=== PATIENT | male | born 1945 | race Caucasian/White ===

== ENCOUNTER 2016-12-07 15:06 | Inpatient (IN) | payer MEDICARE, BC ==
--- NOTE | ~2016-12-07 | DS ---
Discharge Summary [facility] [address] [place]. [address] NAME: CLAIRE MEEK : 43 STATUS : DIS IN PAT#: [id number] AGE: 71 ADM/REG DATE : 12/08/16 MR#: [id number] REPORT SERV DATE: 12/12/16 DICTATED BY: DATE: REPORT STATUS : Draft TRANSCRIBED BY: MODL DATE: 12/11/16 ADMISSION DATE: 12/08/2016 DISCHARGE DATE: 12/11/2016 DISCHARGE DIAGNOSES: 1. Large volume pulmonary emboli. 2. Right leg deep venous thrombosis. 3. Anxiety. 4. Depression. 5. Hypertension. 6. Right ventricular heart failure versus strain. CONSULTATIONS: 1. Pulmonary, Dr. Alma Reyes. 2. Interventional Radiology. PROCEDURES AND IMAGIN. 12/07/2016, portable chest x-ray showed no acute cardiopulmonary abnormality. 2. 12/08/2016, CTA of the chest showed:. a. Pulmonary emboli. b. Minimal nodule in the right lower lobe requiring a followup CT recommendation in 6 months. c. Calcific atherosclerosis. 3. 12/08/2016, bilateral lower extremity venous Doppler showed acute thrombus in the right lower extremity popliteal and calf veins. 4. 12/09/2016, Vasc lab followup thrombolysis imaging showed pulmonary pressures returning to normal with clot burden being reduced significantly, and EKOS catheter thrombosis was terminated. 5. 12/08/2016, Vasc lab initial imaging prior to thrombosis showed:. a. Pulmonary hypertension. b. Bilateral submassive pulmonary embolisms. HOSPITAL COURSE: This is a very pleasant 71-year-old white gentleman who reports worsening dyspnea on exertion and increased fatigue. Please see admission H and P by Jaz Dang on 12/07. On CT of chest exam, it was shown that the patient had extensive bilateral pulmonary emboli, so Pulmonary was consulted for a possible EKOS catheter-directed thrombolysis per Interventional Radiology, and this procedure was performed. The patient did have an echocardiogram that was done that showed an ejection fraction of 50% with mildly dilated right ventricle with mildly decreased systolic dysfunction. The patient has done well post procedure, and burden of subtle emboli was majorly decreased with administration of tPA to the clot. It was decided that this would not require an IVC filter. The patient tolerated his treatment very well. Has had some fluctuations in blood pressure for which he was given p.r.n. medications. It was discussed with the patient the need to purchase compression stockings, also extensive discussion was given with the patient about no cross- country running or cross-country biking for two months and the patient should avoid any type of activity that might increase the risk of falling including running upstairs. It was also Discharge Summary [facility] [id number] [place]. [address] NAME: CLAIRE MEEK : 43 STATUS : DIS IN PAT#: [id number] AGE: 71 ADM/REG DATE : 12/08/16 MR#: [id number] REPORT SERV DATE: 12/12/16 DICTATED BY: DATE: REPORT STATUS : Draft TRANSCRIBED BY: MODL DATE: 12/11/[address] stressed to him by Dr. Malone that the patient will have an increased risk of bleeding with his antidepressant medications and that there is no reversal agent for Eliquis. The patient was also encouraged to discuss his initiation of Eliquis with his psychiatrist, Dr. Marco Antonio Malik. The patient and verbalized understanding. PHYSICAL EXAMINATION: VITAL SIGNS: Blood pressure 183/94, O2 saturation is 95% on room air, temperature is 97.4, respirations are 20, heart rate is 70. HEENT: Head is atraumatic, normocephalic. Sclerae are clear and nonicteric. The patient has good dentition. Pupils are equal, round, reactive to light and accommodation. NECK: Supple with no obvious lymphadenopathy or thyromegaly. Neck veins are flat. CARDIAC: The patient has S1 and S2 with no obvious murmurs, rubs, or gallops. LUNGS: Clear to auscultation with normal respiratory effort. GI: Abdomen is soft and nontender with active bowel sounds in all four quadrants. No palpable organomegaly. Normal bowel habitus. EXTREMITIES: No significant edema, clubbing, or cyanosis. Dorsalis pedis and posterior tibial pulses are palpable bilaterally. The patient does have some right lower extremity minimal swelling due to his DVT. MUSCULOSKELETAL: Moves all extremities x4. Ambulatory without assistance. No difficulties with balance. SKIN: Skin is warm and dry. Normal color and turgor. NEUROPSYCH: The patient is alert and oriented x3, pleasant cooperative. Cranial nerves 2 through 12 are grossly intact. Affect is bright. DISCHARGE DIET: The patient is to be discharged on a regular diet. DISCHARGE MEDICATION: 1. Apixaban 10 mg twice daily through 12/16/2016. 2. Apixaban 5 mg twice daily starting 12/17/2016. 3. Aspirin 325 mg daily. 4. Lipitor 10 mg daily. 5. Xalatan one drop in both eyes at bedtime. 6. Remeron 30 mg at bedtime. 7. Pristiq 100 mg daily. 8. Nexium 20 mg daily. 9. Ramipril 2.5 mg daily. 10.Flomax 0.4 mg daily. 11.Deplin 15 mg every 48 hours. 12.Latuda 20 mg daily. 13.Valium 5 mg four times a day as needed for anxiety. 14.AndroGel 1% 12.5 mg applied to shoulder. 15.The patient is to abstain from omega-3, flaxseed, and curcumin until discussed with his primary care provider. ALLERGIES: THE PATIENT IS ALLERGIC TO CODEINE. DISCHARGE INSTRUCTIONS: The patient is to follow up with his PCP this week as previously Discharge Summary [address] [address] NAME: CLAIRE MEEK : 43 STATUS : DIS IN PAT#: [id number] AGE: 71 ADM/REG DATE : 12/08/16 MR#: [id number] REPORT SERV DATE: 12/12/16 DICTATED BY: DATE: REPORT STATUS : Draft TRANSCRIBED BY: OTILIO DATE: 12/11/16 scheduled. Should the patient develop any type of bleeding or have a fall, he should present to the ER as soon as possible. It has been discussed with the patient, no cross- country running, biking, or other activities that might increase risk of falls for the next two months and throughout his Eliquis treatment. The patient also understands there is increased risk of bleeding with his antidepressant medications and that there is no reversal agent for Eliquis. Both the patient and spouse expressed their understanding. TIME SPENT: Approximately, 30 minutes have been spent coordinating discharge care of this patient including [id number] encounter and summarization of the discharge. HOLLY/OTILIO Tamy Ly NP / [id number] CC: Rafiq Malone M.D.
--- NOTE | ~2016-12-07 | CN ---
Consultation Report [facility] [address] [place]. [address] NAME: CLAIRE MEEK : 43 STATUS : ADM IN PAT#: [id number] AGE: 71 ADM/REG DATE : 12/08/16 MR#: [id number] REPORT SERV DATE: 12/09/16 DICTATED BY: NAYAN HERNANDEZ DATE: 12/08/16 REPORT STATUS : Draft TRANSCRIBED BY: MODL DATE: 12/08/16 CONSULTATION DATE OF CONSULTATION: 12/08/2016 REASON FOR CONSULTATION: Pulmonary embolus. HISTORY OF PRESENT ILLNESS: Mr. Meek is a 71-year-old male with history of hypertension, anxiety, presents to emergency department with history of progressive shortness of breath for several months. The patient said that he initially noticed a change in his baseline function capacity about six to eight months ago when he noticed difficulty with doing his typical exercise routine, which involved riding a bicycle 25-35 miles including with steep hill climbs and running up seven flights of stairs. He initially attributed this to depression and antidepressants had been adjusted. He actually adjusted his course to be less hilly, but he was able to resume a very high level of exercise. About two weeks ago, however, he could not even do this and noted that he had difficulty climbing two flights of stairs and had to abort doing high performance physical activity altogether. This actually caused much increased depression for which he followed up with his psychiatrist. This was stable again until about three days ago, when patient began having shortness of breath on minimal exertion, unable to climb even half a flight of stairs. He is in the emergency department for evaluation of this. There was no chest pain or chest discomfort of any kind. There has been some anxiety and depression as mentioned. No palpitations. No cough. No wheeze. No pain elsewhere. No nausea or vomiting. Mild constipation only, but no bleeding. No swelling. No headache. No limb swelling. Only occasional hand numbness, and remainder of the review of systems is negative. PAST MEDICAL HISTORY: As mentioned above. He has a known aortic aneurysm. MEDICATIONS: Include Flomax, Procardia, AndroGel, Remeron, Lipitor, Altace, Nexium, Latuda, Pristiq, and Valium. ALLERGIES: CODEINE. FAMILY HISTORY: Positive for coronary artery disease in his father, who also had what appears to be a previous venous thrombus. SOCIAL HISTORY: The patient is a remote smoker, but quit 40 years ago. PHYSICAL EXAMINATION: VITAL SIGNS: Blood pressure 176/102, pulse 77, respirations 20, afebrile. O2 saturation 93%. GENERAL: Comfortable, anxious white male, alert and oriented x3, no apparent distress. HEENT: Pupils equal, round, and reactive to light. Extraocular movements are intact. No cranial nerve deficits. Moist mucous membranes. Normal oropharynx. NECK: Revealed no jugular venous distention, carotid bruits, lymphadenopathy, or goiter. Consultation Report [facility] [address] [place]. [address] NAME: CLAIRE MEEK : 43 STATUS : ADM IN [facility]#: [id number] AGE: 71 ADM/REG DATE : 12/08/16 MR#: [id number] REPORT SERV DATE: 12/09/16 DICTATED BY: NAYAN HERNANDEZ DATE: 12/08/16 REPORT STATUS : Draft TRANSCRIBED BY: OTILIO DATE: 12/08/16 CARDIAC: Regular rate and rhythm. No murmurs, gallops, or rubs. LUNGS: Clear to auscultation bilaterally with good respiratory excursion with no wheeze. ABDOMEN: Soft and nontender. Bowel sounds normoactive. No organomegaly. EXTREMITIES: No cyanosis, clubbing, or edema. Good pulses and capillary refill. No Homans sign or cords. NEUROLOGIC: He had normal sensory and motor function in all four extremities. SKIN: Warm and dry. PSYCHIATRIC: Appropriate. LABORATORY EVALUATION: The pH 7.49, pCO2 34, PO2 77. Sodium 139, potassium 3.9, chloride 105, bicarb 23, BUN 16, creatinine 1.2, glucose 137. White count 9000, hemoglobin and hematocrit 14 and 42, platelets 145. Echocardiogram showed normal ejection fraction, but elevated right ventricular pressures and right atrial enlargement. EKG reviewed by me showed no pattern. CT of the thorax reviewed by me showed a massive thrombus load in bilateral proximal pulmonary arteries with a saddle embolus between the two 5 mm lung nodules noted. We also noted significant right ventricle, right atrial enlargement. ASSESSMENT/PLAN: 1. Saddle embolus with bilateral pulmonary emboli and evidence of right ventricular failure and hemodynamically stable, but radiological evidence of submassive pulmonary embolism. We discussed the case with critical care regarding systemic tissue plasminogen activator. Dr. Mesa declined this, so I have discussed the case with Pulmonary and with Cardiology regarding the possibility of catheter based tPA into the pulmonary artery itself and they will evaluate him for just that. In the meantime, a heparin infusion will be done. A Doppler ultrasound has been ordered. In fact, results of which do reveal an acute thrombus in the right lower extremity popliteal and calf veins. This will not require an IVC filter. However given the family history and the fact that this patient with excellent exertional capacity and functionality has had a thrombus, to look for secondary causes of the thrombosis is indicated. We have ordered a hypercoagulable workup looking for protein C, protein S, antithrombin III deficiencies, Jose Luis viper venom abnormalities, glycoprotein, 52493R, or factor V Leiden. The possibility of an occult neoplasm cannot be excluded, although this small pulmonary nodule is highly unlikely to be neoplastic. More concerning, however, is the patient's use of AndroGel. This is well known to be prothrombotic and must be discontinued. 2. Hypertension possibly exacerbated by anxiety, hydralazine p.r.n. Continue Procardia for the time being. 3. Depression/anxiety. Continue present management. We will be happy to presume care of this patient as his attending for the remainder of his hospital stay. Consultation Report [address] [place]. [address] NAME: CLAIRE MEEK : 43 STATUS : ADM IN [facility]#: [id number] AGE: 71 ADM/REG DATE : 12/08/16 MR#: [id number] REPORT SERV DATE: 12/09/16 DICTATED BY: NAYAN HERNANDEZ DATE: 12/08/16 REPORT STATUS : Draft TRANSCRIBED BY: MODL DATE: 12/08/16 VERNA/OTILIO Nayan Hernandez M.D. / [id number] CC: Rafiq Kira, M.D. MD Alma Ch M.D. Nabeel Rg M.D.
--- NOTE | ~2016-12-07 | IDS ---
Interim Discharge Summary [facility] [address] [place]. [address] NAME: CLAIRE MEEK : 43 STATUS : ADM IN [facility]#: [id number] AGE: 71 ADM/REG DATE : 12/08/16 MR#: [id number] REPORT SERV DATE: 12/10/16 DICTATED BY: TRUDY HOOPER IV DATE: 12/10/16 REPORT STATUS : Draft TRANSCRIBED BY: OTILIO DATE: 12/10/16 ADMISSION DATE: 12/08/2016 DISCHARGE DATE: DATE OF TRANSFER TO THE INTENSIVE CARE UNIT: 12/08. DATE OF TRANSFER TO THE FLOOR: 12/10/2016. TRANSFER DIAGNOSES: 1. Large volume pulmonary embolism. 2. Left leg deep vein thrombosis. 3. Right ventricular dysfunction. 4. Hypertension. 5. Depression. 6. Electrolyte abnormalities being corrected. CONSULTANTS: Interventional Radiology, who performed EKOS catheter placement with administration of local 21 mg of tPA. PROCEDURES: The EKOS catheter placement as documented above. MEDICATIONS: Altace 2.5 mg at bedtime, aspirin 325 mg daily, Effexor 150 mg daily, Eliquis 10 mg twice a day, Flomax 0.4 mg daily, Lipitor 10 mg daily, Latuda 15 mg daily, Remeron 30 mg daily, Protonix 40 mg twice a day, Pristiq 100 mg daily, and Deplin 15 mg every 48 hours. HOSPITAL COURSE: The patient presented with increased shortness of breath with a CT angiogram demonstrating large volume clot bilaterally. The patient underwent echocardiogram, which demonstrated some mild dilation of the right ventricle with a mildly decreased systolic function. There was no estimate for right ventricular systolic pressure. The patient was decided to proceed with EKOS catheter placement and topical treatment with tPA. This was performed on the . The patient never was significantly hypotensive nor hypoxemic. He tolerated the treatment well. Post-procedure, he has been initiated on Eliquis, which he received today. He had some fluctuations in his blood pressure, which was slightly higher today, for which he was given p.r.n. medications as well. Potassium was slightly low, which was treated. I had a long conversation with the patient and family per their request reviewing future followup. Additional note, the patient has right lower extremity DVT with minimal swelling that will need to be followed for need for compression stockings. He also has an incidental finding of a right middle lobe nodule, which will require a repeat CT scan in six months per Fleischner Society recommendations. It is felt that he was stable for transfer to the floor and will be referred back to the Hospitalist Service. We will ask Dr. Reyes to continue to follow as well. TAMELA/OTILIO Interim Discharge Summary [address] [facility] [place] [address] NAME: CLAIRE MEEK : 43 STATUS : ADM IN [facility]#: [id number] AGE: 71 ADM/REG DATE : 12/08/16 MR#: [id number] REPORT SERV DATE: 12/10/16 DICTATED BY: TRUDY HOOPER IV DATE: 12/10/16 REPORT STATUS : Draft TRANSCRIBED BY: OTILIO DATE: 12/10/16 Trudy Hooper IV, M.D. / [id number] CC: Kika Dotson TERESA J
--- NOTE | ~2016-12-07 | HP ---
History And Physical [facility] [address] [place]. [address] NAME: CLAIRE MEEK : 43 STATUS : ADM Jamey PAT#: [id number] AGE: 71 ADM/REG DATE : 12/07/16 MR#: [id number] REPORT SERV DATE: 12/08/16 DICTATED BY: NUBIA STATON DATE: 12/08/16 REPORT STATUS : Draft TRANSCRIBED BY: MODSelvin DATE: 12/08/16 DATE OF ADMISSION: 12/07/2016 PSYCHOLOGIST: Dr. Kervin Malik. VASCULAR: Pop Jack M.D. CHIEF COMPLAINT: Dyspnea on exertion and fatigue. HISTORY OF PRESENT ILLNESS: Very pleasant, 71-year-old, white gentleman with flat affect reports that over the last six months, he experienced worsening dyspnea on exertion and fatigue. He states over the last month though he has had more problems with taking stairs or during his usual workout routine which is quite strenuous for this gentleman. He [place] on [place] [facility]. So taking stairs 2 steps at a time makes him significantly short of breath. He also cycles 20 miles routinely and most recently one week ago had to stop for a break during his routine work out. He saw his PCP yesterday and was noted to have an abnormal EKG and it was recommended that he come to the emergency room for further evaluation. He denies any chest pain, pressure, or tightness. No nausea, diaphoresis, dizziness or belching. He reports recent addition of Pristiq to his regimen. He recently stopped his nifedipine secondary to low blood pressure approximately one week ago. He also has initiated transcranial magnetic stimulation therapy recently through his therapist. The patient denies any personal history of myocardial infarction, stroke, DVT, or pulmonary embolus. The patient denies any recent fever or chills, no palpitations, no syncopal episodes. Denies PND or orthopnea. Of note, the patient is followed by Dr. Pop Jack for abdominal aortic aneurysm. Most recently, evaluated 04/2016, and reportedly less than 4 cm in diameter. PAST MEDICAL HISTORY: 1. Hypertension. 2. Dyslipidemia. 3. Prediabetic managed with diet. 4. Anxiety. 5. Depression with major depressive episode recently. 6. Positive family history for early CAD. 7. Remote tobacco abuse. 8. AAA reportedly less than 4.0 cm followed by [facility]. PAST SURGICAL HISTORY: 1. Left hand surgery. 2. Left shoulder surgery. SOCIAL HISTORY: He is , is a blended family of four children. 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 He is a cyclist and a runner. He quit smoking 40 years ago. Rarely History And Physical [place] [place] [address] [place]. [address] NAME: CLAIRE MEEK : 43 STATUS : ADM Jamey PAT#: [id number] AGE: 71 ADM/REG DATE : 12/07/16 MR#: [id number] REPORT SERV DATE: 12/08/16 DICTATED BY: NUBIA STATON DATE: 12/08/16 REPORT STATUS : Draft TRANSCRIBED BY: OTILIO DATE: 12/08/16 consumes alcohol. Denies illicit's. FAMILY HISTORY: Mother with a heart attack and a history of breast cancer, at the age of 70. Brother with a heart attack at the age of 62, remains alive at 65. Sister of a heart attack at the age of 54. REVIEW OF SYSTEMS: A 14-point review of systems performed, significant for HPI. Home blood sugars reported at 120 otherwise complete review of systems obtained and negative. ALLERGIES: CODEINE MAKES HIM GOOFY. HOME MEDICATIONS: Atorvastatin 10 mg nightly, Pristiq 100 mg daily, Valium 5 mg four times daily p.r.n., Nexium 20 mg daily, Xalatan drops at bedtime, Latuda 20 mg nightly, Remeron 30 mg nightly, ramipril 2.5 mg nightly, Flomax 0.4 mg daily, AndroGel daily, Deplin 15 mg every other day, Vowinckel-3 nightly, Flax seed daily, Curcumin daily. PHYSICAL EXAMINATION: VITAL SIGNS: Blood pressure 146/80, pulse 89, respirations 20, temperature 97.9, O2 saturation 94% on room air, height 6 feet, 216 pounds, BMI 29. Orthostatics lying 186/108, sitting 179/95, standing 146/80. GENERAL: Cooperative, in no apparent distress. HEENT: Pupils 2 mm, sclera nonicteric. Nares patent. Moist mucous membranes. No xanthelasma. NECK: Trachea midline, no thyromegaly. No JVD. No bruits. LYMPH: No cervical lymphadenopathy. No supraclavicular lymphadenopathy. RESPIRATORY: Unlabored respirations. Breath sounds clear bilaterally to posterior auscultation. No rhonchi. Expiratory wheeze, left lower lobe that clears with cough. CARDIOVASCULAR: Regular rate. No rub or gallop appreciated. Extremities without edema. Pulses 2+ bilaterally. 2/6 murmur best audible at right sternal border at the base. ABDOMEN: Soft, nontender, nondistended, normal bowel sounds auscultated throughout. No organomegaly. SKIN: Warm, dry extremities. No pallor, or cyanosis. PSYCHIATRIC: Appropriate affect. Alert, oriented x3. LABORATORY DATA: Troponin 0.03, 0.04, 0.08, 0.05. Potassium 3.9, BUN 16, creatinine 1.21, glucose 125, magnesium 2.2. WBC 7.9, hemoglobin 15.5, hematocrit 44.2, platelet count 147,000. EKG, sinus rhythm. Occasional PVCs, nonspecific T-waves. ASSESSMENT AND PLAN: 1. ADAMS. Check echo and MPI. If CTA of chest negative for any PE, the patient will be discharged home if low risk, no ischemia. The patient has requested follow up with Dr. Turcios. We will arrange new patient appointment. The patient receives a Wells Criteria Score of 0 but we will proceed with CTA of chest given marked symptoms of dyspnea on exertion. 2. Fatigue. Check a TSH and free T4. Check orthostatics. 3. Hypertension. Monitor blood pressure. Continue home medications. History And Physical [address] [address] NAME: CLAIRE MEEK : 43 STATUS : ADM Jamey PAT#: [id number] AGE: 71 ADM/REG DATE : 12/07/16 MR#: [id number] REPORT SERV DATE: 12/08/16 DICTATED BY: NUBIA STATON DATE: 12/08/16 REPORT STATUS : Draft TRANSCRIBED BY: MODSelvin DATE: 12/08/16 4. Dyslipidemia. Continue statin. 5. Prediabetic. The patient adheres to a strict diet and exercises routinely. Home blood sugars of 120. 6. Depression. Continue home medications. Followup with Dr. Malik on an outpatient basis. 7. Known AAA followed by [facility]. We will request most recent evaluation for records at this facility. HOUSTON/OTILIO GENIA Stovall, VERITO-BC / [id number] CC: GENIA Stovall, [employer]NET VALVE ASSEMBLER-BC JERSON Turcios M.D.
--- NOTE | ~2016-12-07 | CN ---
Consultation Report [facility] [id number] [place]. [address] NAME: CLAIRE MEEK : 43 STATUS : ADM IN [facility]#: [id number] AGE: 71 ADM/REG DATE : 12/08/16 MR#: [id number] REPORT SERV DATE: 12/08/16 DICTATED BY: ALMA WHITMORE DATE: 12/08/16 REPORT STATUS : Draft TRANSCRIBED BY: MODL DATE: 12/08/16 PULMONARY CONSULTATION DATE OF CONSULTATION: 12/08/2016 REASON FOR CONSULTATION: Bilateral pulmonary emboli, requesting evaluation for possible EKOS catheter-directed thrombolysis. HISTORY OF PRESENT ILLNESS: Mr. Meek is a 71-year-old white male, former smoker, admitted with approximately an eight-month history of increasing shortness of breath and decreased exercise tolerance with a marked increase in his dyspnea approximately three days ago. He had a workup including an EKG that showed right heart strain. Ultimately, he had a CT angiogram that revealed extensive bilateral pulmonary emboli, so Pulmonary was consulted for possible EKOS catheter-directed thrombolysis per Interventional Radiology. The patient currently complains of dyspnea, but feels that has not changed since admission. He does not have shortness of breath at rest. He denies chest pain, cough, wheezing, hemoptysis, or fever. He denies a past medical history of pulmonary diseases. It is notable that his smoker father had a history of thrombophlebitis and DVT. PAST MEDICAL HISTORY: 1. Former smoker. 2. Hypertension. 3. Previous shoulder surgery. 4. Dupuytren contracture, left hand, with subsequent contracture release. FAMILY HISTORY: As noted above, smoker father had a history of thrombophlebitis and lower extremity DVT. SOCIAL HISTORY: Mr. Meek smoked one pack of cigarettes per day for approximately eight years. He quit 40 years ago. He denies ethanol intake, past/present drug use, chewing tobacco, or occupational exposures. He is and has two children. MEDICATIONS: Outpatient and inpatient medications were reviewed and are as documented in the record. He was on no outpatient pulmonary medications. ALLERGIES: CODEINE. REVIEW OF SYSTEMS: A 10-point system review was conducted and is remarkable for the symptoms as described in the history of present illness. He denies risk factors for thrombotic disease. He did have a long car trip in 04/2016. Consultation Report [facility] [id number] [place]. [address] NAME: CLAIRE MEEK : 43 STATUS : ADM IN [facility]#: [id number] AGE: 71 ADM/REG DATE : 12/08/16 MR#: [id number] REPORT SERV DATE: 12/08/16 DICTATED BY: ALMA WHITMORE DATE: 12/08/16 REPORT STATUS : Draft TRANSCRIBED BY: OTILIO DATE: 12/08/16 PHYSICAL EXAMINATION: VITAL SIGNS: Temperature 98.1 degrees, heart rate 98, blood pressure 166/92, respiratory rate 18, and oxygen saturation 95% on room air. GENERAL: Pleasant white male. Alert, oriented, in no apparent distress. HEENT: Normocephalic. Atraumatic. There is no scleral icterus. The conjunctivae are clear. The oropharynx is clear. NECK: Supple. No lymphadenopathy was noted. LUNGS: Good effort. The lungs are clear to auscultation bilaterally. HEART: Regular rate and rhythm. No ectopy was noted. ABDOMEN: Soft. Nontender. Nondistended. There are normal bowel sounds in all four quadrants. NEUROLOGICAL: Limited exam was conducted. It was found to be nonfocal. SKIN: Mild facial flushing. No rashes were noted. LABORATORY RESULTS: Labs were reviewed and are documented in the record. Notable labs include an arterial blood gas that revealed a pH of 7.49, pCO2 of 34, and pO2 of 77 on room air. Echocardiogram: Per available report, the echocardiogram done today revealed ejection fraction of 50%, mildly dilated right ventricle with mildly decreased systolic function. CT angiogram of the chest done this admission revealed extensive bilateral pulmonary emboli, there are no infiltrate or effusions. There is a 5 mm right lower lobe lung nodule. ASSESSMENT AND PLAN: Mr. Meek is a 71-year-old white male, former smoker, with no pulmonary history was admitted with extensive bilateral pulmonary emboli and evidence of right heart strain with hypoxia. Recommend EKOS catheter-directed thrombolysis per Interventional Radiology. This was discussed with Dr. Walker Martinez, interventional radiologist. The patient agrees and desires the procedure, so it has been ordered accordingly. As noted above, he has no risk factors for pulmonary embolism. Recommend workup for DVT and possible malignancy. A Doppler ultrasound of his lower extremities has been ordered. With regard to his lung nodule, this can be followed up with an outpatient CT scan of the chest. Thank you very much for this consultation. PS/OTILIO Alma [facility], Consultation Report [address] [place] [address] NAME: CLAIRE MEEK : 43 STATUS : ADM IN PAT#: [id number] AGE: 71 ADM/REG DATE : 12/08/16 MR#: [id number] REPORT SERV DATE: 12/08/16 DICTATED BY: ALMA WHITMORE DATE: 12/08/16 REPORT STATUS : Draft TRANSCRIBED BY: OTILIO DATE: 12/08/16 Kika / [id number] CC: John Curry M.D.
--- NOTE | ~2016-12-07 | CN ---
Consultation Report [address] [place]. [address] NAME: CLAIRE MEEK : 43 STATUS : ADM IN [facility]#: [id number] AGE: 71 ADM/REG DATE : 12/08/16 MR#: [id number] REPORT SERV DATE: 12/08/16 DICTATED BY: TRIP MALONE DATE: 12/08/16 REPORT STATUS : Draft TRANSCRIBED BY: MODL DATE: 12/08/16 CONSULTATION DATE OF CONSULTATION: 12/08/2016 TIME: 1940 hours. Seen in MICU bed 7. HISTORY OF PRESENT ILLNESS: The patient is a 71-year-old white male who in the past several weeks notes increasing shortness of breath especially when he exercises. He called his doctor. He came to the ER today and was found to have pulmonary emboli on CT scan. He underwent EKOS catheter with thrombolysis, now in place. He is beginning to feel improved. He also had DVT noted in his right lower extremity as well. 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 PAST MEDICAL HISTORY: Significant for no prior instances of DVT or PE. He does have a known abdominal aortic aneurysm of 4 cm, being followed by Dr. Pop Jack. He has mild prostatic hypertrophy and occasional hypertension. He is allergic to codeine. No significant cardiac problems. REVIEW OF SYSTEMS: Otherwise negative or noncontributory except for what is mentioned above. Shoulder surgery in the past. FAMILY HISTORY: He had a father with thrombophlebitis and DVT. His mother had breast cancer. SOCIAL HISTORY: Quit smoking 40 years ago. Does not drink. MEDICATIONS: As listed. REVIEW OF SYSTEMS: As noted above, 10-point review of systems is negative. PHYSICAL EXAMINATION: VITAL SIGNS: Blood pressure 160/70, pulse 70. GENERAL: He is awake alert, oriented, in no acute distress. HEENT: Head is normocephalic. Sclerae and conjunctivae are clear. normal. NECK: Supple. Good upstroke. No bruits. CHEST: Clear to auscultation and percussion. No wheezing or rhonchi. CARDIAC: S1 and S2. No murmurs or gallops. ABDOMEN: Soft, scaphoid, nontender. No masses or organomegaly. Consultation Report [address] [place]. [address] NAME: CLAIRE MEEK : 43 STATUS : ADM IN PAT#: [id number] AGE: 71 ADM/REG DATE : 12/08/16 MR#: [id number] REPORT SERV DATE: 12/08/16 DICTATED BY: TRIP MALONE DATE: 12/08/16 REPORT STATUS : Draft TRANSCRIBED BY: MODL DATE: 12/08/16 EXTREMITIES: EKOS catheter in the right groin. No tenderness in calves. No swelling. NEUROLOGIC: Cranial nerves 2 through 12 are intact. Deep tendon reflexes appear to be normal. LABORATORY DATA: Show arterial blood gases taken at 10 a.m. or 10:15 a.m. pH 7.49, pCO2 of 34, pO2 of 77 on 21%. His electrolytes show sodium 139, potassium 3.9, chloride 105, CO2 of 25, BUN 14, creatinine 1.08, glucose 137, calcium 9.2. CBC done at the same time 14.8 and 41.6, white count 8700, platelet count 145,000. PTT 26.2, PT 14.4, and INR 1.1. Antithrombin III activity is 119, which is normal. Venous Doppler, lower extremity, bilateral, evidence for acute thrombus at right lower extremity popliteal and calf veins. The patient denies any injury to his extremities. Troponin less than 0.05. TSH 2.620. Free T4 of 1.12. CT scan was reviewed: Bilateral pulmonary emboli. Impression: Submassive pulmonary embolism with dyspnea. Now currently on EKOS catheter system. We will repeat labs in the morning. Continue EKOS system. EKG was unrevealing. The patient did have an echocardiogram today, which showed the following: Low normal left ventricular ejection fraction of 30%, mildly dilated left ventricle, mildly decreased systolic function, mild aortic stenosis, tricuspid regurgitation right-sided pressures. IMPRESSION: Pulmonary emboli, submassive, and deep venous thrombosis of right lower extremity. Continue present therapies. Previous notes and chart have been reviewed along with studies. FREDDIE/OTILIO Trip Malone M.D. / [id number] CC: Kika Dotson TERESA J
[2016-12-07 14:22] LABS: BASOPHILS 0.3 %; BASOPHILS ABSOLUTE 0.02 10/3/uL (0.0-0.16); EOSINOPHILS 1.3 %; HEMATOCRIT 44.2 % (40.0-51.0); HEMOGLOBIN 15.5 g/dL (13.6-17.8); IMMATURE GRANULOCYTES 0.3 %; IMMATURE GRANULOCYTES ABSOLUTE 0.02 10/3/uL (0.0-0.11); LYMPHOCYTES 22.6 %; LYMPHOCYTES ABSOLUTE 1.79 10/3/uL (0.67-4.30); MEAN CORPUS HGB CONC 35.1 g/dL (32.0-36.0); MEAN CORPUSCULAR VOLUME 88.4 fL (80-100); MEAN PLATELET VOLUME 9.3 fL (9.2-13.0); MONOCYTES 5.8 %; MONOCYTES ABSOLUTE 0.46 10/3/uL (0.21-1.20); NEUTROPHILS 69.7 %; NEUTROPHILS ABSOLUTE 5.52 10/3/uL (2.02-8.40); PLATELET COUNT 147 10/3/uL (150-400); RBC DISTRIBUTION WIDTH 13.3 % (12.0-16.0)
[2016-12-07 14:24] LABS: MANUAL DIFF NO %; WHITE BLOOD CELLS 7.9 10/3/uL (4.5-10.5)
[2016-12-07 14:30] LABS: INTERNATIONAL NORMAL RATI 1.1 UNITS (-); PARTIAL THROMBO TIME 24.9 SEC (22.5-37.2); PROTIME (NOT ORD) 13.9 SEC (12.0-14.5)
[2016-12-07 14:38] LABS: BUN (BLOOD UREA NITROGEN) 16 MG/DL (6-23); CALCIUM, SERUM 9.5 MG/DL (8.5-10.4); CHEST PAIN PROFILE TAT 0 Hrs 20 Mins; CHLORIDE, SERUM 103 MMOL/L (96-112); CO2 (CARBON DIOXIDE) 27 MMOL/L (24-34); CREATININE 1.21 MG/DL (0.70-1.30); GFR AFRICAN AMERICAN 69 ML/MIN (>=60); GFR NON AFRICAN AMERICAN 59 ML/MIN (>=60); GLUCOSE, SERUM 125 MG/DL (60-99); POTASSIUM, SERUM 3.9 MMOL/L (3.5-5.3); SODIUM, SERUM 141 MMOL/L (135-148); TROPONIN I 0.03 NG/ML (<0.05)
[2016-12-07] MEDS ORDERED: [UNRECOGNIZED DRUG - OTHER] PO (15:47)
[2016-12-07] MEDS ORDERED: FLOMAX4 PO (15:47)
[2016-12-07] MEDS ORDERED: LIPITOR10 PO (15:48)
[2016-12-07] MEDS ORDERED: REMERON30 MG PO (15:48)
[2016-12-07] MEDS ORDERED: LATUDA20 MG PO (15:48)
[2016-12-07] MEDS ORDERED: NEXIUM20 M1 PO (15:48)
[2016-12-07] MEDS ORDERED: ALTA2.5 PO (15:48)
[2016-12-07] MEDS ORDERED: PRISTIQ100 MG PO (15:49)
[2016-12-07] MEDS ORDERED: V5 PO (15:52)
[2016-12-07] MEDS ORDERED: ANDROGEL5 PO (15:53)
[2016-12-07] MEDS ORDERED: OMEGA-3 PO (15:54)
[2016-12-07] MEDS ORDERED: FLAXSEED PO (15:55)
[2016-12-07] MEDS ORDERED: CURCUMIN PO (15:55)
[2016-12-07] MEDS ORDERED: XALAT OPH (15:56)
[2016-12-08 07:49] LABS: TROPONIN I 0.05 NG/ML (<0.05)
[2016-12-08 10:08] LABS: FREE T4 1.12 NG/DL (0.76-1.46); ULTRASENSITIVE TSH 2.62 MCIU/ML (0.358-3.740)
[2016-12-08 10:38] LABS: BASOPHILS 0.1 %; BASOPHILS ABSOLUTE 0.01 10/3/uL (0.0-0.16); EOSINOPHILS 0.3 %; EOSINOPHILS ABSOLUTE 0.03 10/3/uL (0.0-0.53); HEMATOCRIT 41.6 % (40.0-51.0); HEMOGLOBIN 14.8 g/dL (13.6-17.8); IMMATURE GRANULOCYTES 0.1 %; IMMATURE GRANULOCYTES ABSOLUTE 0.01 10/3/uL (0.0-0.11); LYMPHOCYTES 12.8 %; LYMPHOCYTES ABSOLUTE 1.11 10/3/uL (0.67-4.30); MANUAL DIFF NO %; MEAN CORPUS HGB CONC 35.6 g/dL (32.0-36.0); MEAN CORPUSCULAR HEMOGLOB 31.2 pg (26.0-34.0); MEAN CORPUSCULAR VOLUME 87.8 fL (80-100); MEAN PLATELET VOLUME 9.6 fL (9.2-13.0); MONOCYTES 5.7 %; MONOCYTES ABSOLUTE 0.49 10/3/uL (0.21-1.20); NEUTROPHILS ABSOLUTE 7.02 10/3/uL (2.02-8.40); PLATELET COUNT 145 10/3/uL (150-400); RBC DISTRIBUTION WIDTH 13.3 % (12.0-16.0); RED CELL COUNT 4.74 10/6/uL (4.7-6.1); WHITE BLOOD CELLS 8.7 10/3/uL (4.5-10.5)
[2016-12-08 10:46] LABS: INTERNATIONAL NORMAL RATI 1.1 UNITS (-); PARTIAL THROMBO TIME 26.2 SEC (22.5-37.2); PROTIME (NOT ORD) 14.4 SEC (12.0-14.5)
[2016-12-08 10:50] LABS: BUN (BLOOD UREA NITROGEN) 14 MG/DL (6-23); CALCIUM, SERUM 9.2 MG/DL (8.5-10.4); CHLORIDE, SERUM 105 MMOL/L (96-112); CO2 (CARBON DIOXIDE) 25 MMOL/L (24-34); CREATININE 1.08 MG/DL (0.70-1.30); GFR AFRICAN AMERICAN 79 ML/MIN (>=60); GFR NON AFRICAN AMERICAN 68 ML/MIN (>=60); GLUCOSE, SERUM 137 MG/DL (60-99); POTASSIUM, SERUM 3.9 MMOL/L (3.5-5.3); SODIUM, SERUM 139 MMOL/L (135-148)
[2016-12-08 10:56] LABS: ALLENS TEST Pos; BE (BASE EXCESS) 2.2 MEQ/L (0 +/- 2.5); CARBOXYHEMOGLOBIN 1.3 % (0-3); INSTRUMENT SERIAL # 8087; METHEMOGLOBIN 0.3 % (0-3); O2 CONTENT 19.9 VOL% (18-24); PCO2 (CO2 TENSION) 34 MMHG (35-45); PO2 (O2 TENSION) 77 MMHG (79-93); SAMPLE Arterial; pH 7.49 (7.37-7.43)
[2016-12-08 19:34] LABS: INTERNATIONAL NORMAL RATI 1.2 UNITS (-); PARTIAL THROMBO TIME 79.4 SEC (22.5-37.2)
[2016-12-08 22:16] LABS: BASOPHILS 0.1 %; BASOPHILS ABSOLUTE 0.01 10/3/uL (0.0-0.16); EOSINOPHILS 0.7 %; EOSINOPHILS ABSOLUTE 0.05 10/3/uL (0.0-0.53); HEMATOCRIT 40.4 % (40.0-51.0); HEMOGLOBIN 14.2 g/dL (13.6-17.8); IMMATURE GRANULOCYTES 0.1 %; IMMATURE GRANULOCYTES ABSOLUTE 0.01 10/3/uL (0.0-0.11); LYMPHOCYTES 28.7 %; LYMPHOCYTES ABSOLUTE 1.94 10/3/uL (0.67-4.30); MANUAL DIFF NO %; MEAN CORPUS HGB CONC 35.1 g/dL (32.0-36.0); MEAN CORPUSCULAR HEMOGLOB 31.2 pg (26.0-34.0); MEAN CORPUSCULAR VOLUME 88.8 fL (80-100); MEAN PLATELET VOLUME 9.4 fL (9.2-13.0); MONOCYTES 8.3 %; MONOCYTES ABSOLUTE 0.56 10/3/uL (0.21-1.20); NEUTROPHILS 62.1 %; PLATELET COUNT 157 10/3/uL (150-400); RBC DISTRIBUTION WIDTH 13.5 % (12.0-16.0); RED CELL COUNT 4.55 10/6/uL (4.7-6.1); WHITE BLOOD CELLS 6.8 10/3/uL (4.5-10.5)
[2016-12-08 22:23] LABS: FIBRINOGEN 411 MG/DL (230-462)
[2016-12-08 22:24] LABS: PARTIAL THROMBO TIME 82.4 SEC (22.5-37.2)
[2016-12-09 03:00] LABS: BASOPHILS 0.2 %; BASOPHILS ABSOLUTE 0.02 10/3/uL (0.0-0.16); EOSINOPHILS ABSOLUTE 0.16 10/3/uL (0.0-0.53); HEMATOCRIT 39.5 % (40.0-51.0); HEMOGLOBIN 13.7 g/dL (13.6-17.8); IMMATURE GRANULOCYTES 0.1 %; IMMATURE GRANULOCYTES ABSOLUTE 0.01 10/3/uL (0.0-0.11); LYMPHOCYTES 19.4 %; LYMPHOCYTES ABSOLUTE 1.57 10/3/uL (0.67-4.30); MANUAL DIFF NO %; MEAN CORPUS HGB CONC 34.7 g/dL (32.0-36.0); MEAN CORPUSCULAR HEMOGLOB 30.9 pg (26.0-34.0); MEAN CORPUSCULAR VOLUME 89.2 fL (80-100); MEAN PLATELET VOLUME 9.7 fL (9.2-13.0); MONOCYTES 8.4 %; MONOCYTES ABSOLUTE 0.68 10/3/uL (0.21-1.20); NEUTROPHILS 69.9 %; NEUTROPHILS ABSOLUTE 5.67 10/3/uL (2.02-8.40); PLATELET COUNT 155 10/3/uL (150-400); RBC DISTRIBUTION WIDTH 13.7 % (12.0-16.0); RED CELL COUNT 4.43 10/6/uL (4.7-6.1); WHITE BLOOD CELLS 8.1 10/3/uL (4.5-10.5)
[2016-12-09 03:10] LABS: PARTIAL THROMBO TIME 132.1 SEC (22.5-37.2)
[2016-12-09 03:21] LABS: BUN (BLOOD UREA NITROGEN) 11 MG/DL (6-23); CALCIUM, SERUM 6.7 MG/DL (8.5-10.4); CHLORIDE, SERUM 113 MMOL/L (96-112); CO2 (CARBON DIOXIDE) 24 MMOL/L (24-34); CREATININE 0.73 MG/DL (0.70-1.30); GFR AFRICAN AMERICAN 107 ML/MIN (>=60); GFR NON AFRICAN AMERICAN 93 ML/MIN (>=60); GLUCOSE, SERUM 98 MG/DL (60-99); POTASSIUM, SERUM 3.1 MMOL/L (3.5-5.3); SODIUM, SERUM 146 MMOL/L (135-148)
[2016-12-09 07:05] LABS: BASOPHILS 0.3 %; BASOPHILS ABSOLUTE 0.02 10/3/uL (0.0-0.16); EOSINOPHILS 3.6 %; EOSINOPHILS ABSOLUTE 0.25 10/3/uL (0.0-0.53); HEMATOCRIT 38.3 % (40.0-51.0); HEMOGLOBIN 13.4 g/dL (13.6-17.8); IMMATURE GRANULOCYTES 0.1 %; IMMATURE GRANULOCYTES ABSOLUTE 0.01 10/3/uL (0.0-0.11); LYMPHOCYTES 26.2 %; LYMPHOCYTES ABSOLUTE 1.82 10/3/uL (0.67-4.30); MANUAL DIFF NO %; MEAN CORPUSCULAR HEMOGLOB 30.9 pg (26.0-34.0); MEAN CORPUSCULAR VOLUME 88.5 fL (80-100); MEAN PLATELET VOLUME 9.6 fL (9.2-13.0); MONOCYTES 7.9 %; MONOCYTES ABSOLUTE 0.55 10/3/uL (0.21-1.20); NEUTROPHILS 61.9 %; PLATELET COUNT 145 10/3/uL (150-400); RBC DISTRIBUTION WIDTH 13.8 % (12.0-16.0); RED CELL COUNT 4.33 10/6/uL (4.7-6.1)
[2016-12-09 07:08] LABS: FIBRINOGEN 389 MG/DL (230-462)
[2016-12-09 07:09] LABS: PARTIAL THROMBO TIME 79.8 SEC (22.5-37.2)
[2016-12-09 10:52] LABS: BASOPHILS 0.3 %; BASOPHILS ABSOLUTE 0.02 10/3/uL (0.0-0.16); EOSINOPHILS ABSOLUTE 0.21 10/3/uL (0.0-0.53); HEMATOCRIT 38.4 % (40.0-51.0); HEMOGLOBIN 13.5 g/dL (13.6-17.8); IMMATURE GRANULOCYTES 0.3 %; IMMATURE GRANULOCYTES ABSOLUTE 0.02 10/3/uL (0.0-0.11); LYMPHOCYTES 25.3 %; LYMPHOCYTES ABSOLUTE 1.78 10/3/uL (0.67-4.30); MANUAL DIFF NO %; MEAN CORPUS HGB CONC 35.2 g/dL (32.0-36.0); MEAN CORPUSCULAR HEMOGLOB 30.8 pg (26.0-34.0); MEAN CORPUSCULAR VOLUME 87.5 fL (80-100); MEAN PLATELET VOLUME 9.5 fL (9.2-13.0); MONOCYTES ABSOLUTE 0.49 10/3/uL (0.21-1.20); NEUTROPHILS 64.1 %; NEUTROPHILS ABSOLUTE 4.51 10/3/uL (2.02-8.40); PLATELET COUNT 144 10/3/uL (150-400); RBC DISTRIBUTION WIDTH 13.7 % (12.0-16.0); RED CELL COUNT 4.39 10/6/uL (4.7-6.1)
[2016-12-09 10:59] LABS: FIBRINOGEN 405 MG/DL (230-462)
[2016-12-09 11:00] LABS: PARTIAL THROMBO TIME 58.5 SEC (22.5-37.2)
[2016-12-09 14:18] LABS: BASOPHILS 0.4 %; BASOPHILS ABSOLUTE 0.03 10/3/uL (0.0-0.16); EOSINOPHILS 3.2 %; EOSINOPHILS ABSOLUTE 0.22 10/3/uL (0.0-0.53); HEMOGLOBIN 13.9 g/dL (13.6-17.8); IMMATURE GRANULOCYTES 0.1 %; IMMATURE GRANULOCYTES ABSOLUTE 0.01 10/3/uL (0.0-0.11); LYMPHOCYTES 24.3 %; LYMPHOCYTES ABSOLUTE 1.66 10/3/uL (0.67-4.30); MANUAL DIFF NO %; MEAN CORPUS HGB CONC 34.8 g/dL (32.0-36.0); MEAN CORPUSCULAR VOLUME 89.3 fL (80-100); MEAN PLATELET VOLUME 9.2 fL (9.2-13.0); MONOCYTES 8.9 %; MONOCYTES ABSOLUTE 0.61 10/3/uL (0.21-1.20); NEUTROPHILS 63.1 %; PLATELET COUNT 149 10/3/uL (150-400); RBC DISTRIBUTION WIDTH 13.3 % (12.0-16.0); RED CELL COUNT 4.48 10/6/uL (4.7-6.1); WHITE BLOOD CELLS 6.8 10/3/uL (4.5-10.5)
[2016-12-09 14:25] LABS: FIBRINOGEN 408 MG/DL (230-462)
[2016-12-09 19:00] LABS: BASOPHILS 0.3 %; BASOPHILS ABSOLUTE 0.02 10/3/uL (0.0-0.16); EOSINOPHILS 2.5 %; EOSINOPHILS ABSOLUTE 0.18 10/3/uL (0.0-0.53); HEMATOCRIT 42.9 % (40.0-51.0); IMMATURE GRANULOCYTES 0.1 %; IMMATURE GRANULOCYTES ABSOLUTE 0.01 10/3/uL (0.0-0.11); LYMPHOCYTES 22.6 %; LYMPHOCYTES ABSOLUTE 1.61 10/3/uL (0.67-4.30); MEAN CORPUSCULAR HEMOGLOB 31.1 pg (26.0-34.0); MEAN CORPUSCULAR VOLUME 88.8 fL (80-100); MEAN PLATELET VOLUME 9.6 fL (9.2-13.0); MONOCYTES 6.5 %; MONOCYTES ABSOLUTE 0.46 10/3/uL (0.21-1.20); NEUTROPHILS ABSOLUTE 4.85 10/3/uL (2.02-8.40); PLATELET COUNT 163 10/3/uL (150-400); RBC DISTRIBUTION WIDTH 13.6 % (12.0-16.0); RED CELL COUNT 4.83 10/6/uL (4.7-6.1); WHITE BLOOD CELLS 7.1 10/3/uL (4.5-10.5)
[2016-12-09 19:03] LABS: MANUAL DIFF NO %
[2016-12-09 19:07] LABS: FIBRINOGEN 429 MG/DL (230-462)
[2016-12-10 04:57] LABS: BASOPHILS 0.3 %; BASOPHILS ABSOLUTE 0.02 10/3/uL (0.0-0.16); EOSINOPHILS 6.3 %; EOSINOPHILS ABSOLUTE 0.48 10/3/uL (0.0-0.53); HEMATOCRIT 39.5 % (40.0-51.0); HEMOGLOBIN 13.8 g/dL (13.6-17.8); IMMATURE GRANULOCYTES 0.1 %; IMMATURE GRANULOCYTES ABSOLUTE 0.01 10/3/uL (0.0-0.11); LYMPHOCYTES 21.4 %; LYMPHOCYTES ABSOLUTE 1.64 10/3/uL (0.67-4.30); MEAN CORPUS HGB CONC 34.9 g/dL (32.0-36.0); MEAN CORPUSCULAR HEMOGLOB 31.1 pg (26.0-34.0); MEAN PLATELET VOLUME 9.6 fL (9.2-13.0); MONOCYTES 10.7 %; MONOCYTES ABSOLUTE 0.82 10/3/uL (0.21-1.20); NEUTROPHILS 61.2 %; PLATELET COUNT 152 10/3/uL (150-400); RBC DISTRIBUTION WIDTH 13.7 % (12.0-16.0); RED CELL COUNT 4.44 10/6/uL (4.7-6.1); WHITE BLOOD CELLS 7.7 10/3/uL (4.5-10.5)
[2016-12-10 04:59] LABS: MANUAL DIFF NO %
[2016-12-10 05:08] LABS: CHLORIDE, SERUM 105 MMOL/L (96-112); CO2 (CARBON DIOXIDE) 25 MMOL/L (24-34); CREATININE 1.06 MG/DL (0.70-1.30); GFR AFRICAN AMERICAN 81 ML/MIN (>=60); GFR NON AFRICAN AMERICAN 70 ML/MIN (>=60); GLUCOSE, SERUM 107 MG/DL (60-99); PHOSPHORUS, SERUM 3.5 MG/DL (2.5-4.5); SODIUM, SERUM 141 MMOL/L (135-148)
[2016-12-10 05:10] LABS: BUN (BLOOD UREA NITROGEN) 15 MG/DL (6-23); POTASSIUM, SERUM 3.9 MMOL/L (3.5-5.3)
[2016-12-10 12:44] LABS: ALBUMIN 3.4 G/DL (3.5-5.0); DIRECT BILIRUBIN 0.1 MG/DL (0.0-0.4); INDIRECT BILIRUBIN(NOT ORDER) 0.5 MG/DL (0.1-0.9); SGOT(AST) 20 U/L (5-40); SGPT(ALT) 20 U/L (5-65); TOTAL BILIRUBIN 0.6 MG/DL (0-1.2); TOTAL PROTEIN 7.1 G/DL (6.0-8.5)
[2016-12-10 12:48] LABS: ALKALINE PHOSPHATASE 108 U/L (45-117)
[2016-12-11 05:04] LABS: BASOPHILS 0.3 %; BASOPHILS ABSOLUTE 0.02 10/3/uL (0.0-0.16); EOSINOPHILS 8.5 %; EOSINOPHILS ABSOLUTE 0.52 10/3/uL (0.0-0.53); HEMOGLOBIN 13.4 g/dL (13.6-17.8); IMMATURE GRANULOCYTES 0.2 %; IMMATURE GRANULOCYTES ABSOLUTE 0.01 10/3/uL (0.0-0.11); LYMPHOCYTES 32.5 %; LYMPHOCYTES ABSOLUTE 1.99 10/3/uL (0.67-4.30); MEAN CORPUS HGB CONC 35.3 g/dL (32.0-36.0); MEAN CORPUSCULAR HEMOGLOB 31.1 pg (26.0-34.0); MEAN CORPUSCULAR VOLUME 88.2 fL (80-100); MEAN PLATELET VOLUME 9.6 fL (9.2-13.0); MONOCYTES ABSOLUTE 0.61 10/3/uL (0.21-1.20); NEUTROPHILS 48.5 %; NEUTROPHILS ABSOLUTE 2.98 10/3/uL (2.02-8.40); PLATELET COUNT 165 10/3/uL (150-400); RBC DISTRIBUTION WIDTH 13.7 % (12.0-16.0); RED CELL COUNT 4.31 10/6/uL (4.7-6.1); WHITE BLOOD CELLS 6.1 10/3/uL (4.5-10.5)
[2016-12-11 05:06] LABS: MANUAL DIFF NO %
[2016-12-11 05:12] LABS: BUN (BLOOD UREA NITROGEN) 17 MG/DL (6-23); CALCIUM, SERUM 8.9 MG/DL (8.5-10.4); CHLORIDE, SERUM 106 MMOL/L (96-112); CO2 (CARBON DIOXIDE) 24 MMOL/L (24-34); CREATININE 0.96 MG/DL (0.70-1.30); GFR AFRICAN AMERICAN 91 ML/MIN (>=60); GFR NON AFRICAN AMERICAN 79 ML/MIN (>=60); GLUCOSE, SERUM 109 MG/DL (60-99); PHOSPHORUS, SERUM 3.2 MG/DL (2.5-4.5); SODIUM, SERUM 141 MMOL/L (135-148)
[2016-12-11] MEDS ORDERED: ELIQUIS 5 MG TAB5 MG PO (18:00)
[2016-12-11] MEDS ORDERED: ASA5GR PO (18:01)
[2016-12-11] MEDS ORDERED: APRES25 PO (18:10)
[2016-12-12 14:01] LABS: PROTEIN C ACTIVITY 127 % (70-145)
[2016-12-12 14:02] LABS: PROTEIN S ACTIVITY 120 % (69-161)
== END 2016-12-11 20:24 | disposition home or self-care (01) | DRG 176 ==
LOC: ER 15:06 → CDU1 17:57 → SDC/OF 12-08 16:45 → MIC 12-08 19:21 → 2SO 12-10 19:42
PROVIDERS: Clinical Nurse Specialist; Internal Medicine; Internal Medicine Critical Care Medicine; Nurse Practitioner; Radiology Diagnostic Radiology
PROC: 06H033Z Insertion of Infusion Device into Inferior Vena Cava, Percutaneous Approach (ICD-10-PCS; principal; 2016-12-08)
PROC: B5191ZA Fluoroscopy of Inferior Vena Cava using Low Osmolar Contrast, Guidance (ICD-10-PCS; 2016-12-08)
PROC: 3E04317 Introduction of Other Thrombolytic into Central Vein, Percutaneous Approach (ICD-10-PCS; 2016-12-08)
PROC: B31T1ZZ Fluoroscopy of Left Pulmonary Artery using Low Osmolar Contrast (ICD-10-PCS; 2016-12-09)
DX: I26.92 Saddle embolus of pulmonary artery without acute cor pulmonale (principal); I27.2 Other secondary pulmonary hypertension; I82.432 Acute embolism and thrombosis of left popliteal vein; I10 Essential (primary) hypertension; E78.5 Hyperlipidemia, unspecified; F41.9 Anxiety disorder, unspecified; F32.9 Major depressive disorder, single episode, unspecified; I71.4 Abdominal aortic aneurysm, without rupture; N40.0 Benign prostatic hyperplasia without lower urinary tract symptoms; I36.1 Nonrheumatic tricuspid (valve) insufficiency; I35.0 Nonrheumatic aortic (valve) stenosis; R91.1 Solitary pulmonary nodule; M24.542 Contracture, left hand; Z82.49 Family history of ischemic heart disease and other diseases of the circulatory system; Z87.891 Personal history of nicotine dependence; Z98.890 Other specified postprocedural states; Z80.3 Family history of malignant neoplasm of breast; Z88.5 Allergy status to narcotic agent
CPT/HCPCS: 36014; 36600; 37211; 37214; 71010; 71275; 75743; 80048; 80076; 81241; 82330; 82805; 83735; 83880; 84100; 84439; 84443; 84484; 85025; 85300; 85303; 85306; 85384; 85610; 85613; 85730; 86146; 86146-59; 87641; 93005; 93970; 99285; A9270-GY; C1769; C1887; C8929; J0360; J2250; J2997; J3010; Q9957; Q9967